=== PATIENT | male | born 2000 | race Caucasian/White ===

== ENCOUNTER 2022-03-05 12:59 | Emergency (ER) | payer OTHER, SELFPAY ==
--- NOTE | 2022-03-05 13:03 | ED.DENTAL ---
HPI - Dental/Oral General Chief complaint: Dental/Oral Stated complaint: TOOTHACHE Time Seen by Provider: 03/05/22 13:03 Source: patient and RN notes reviewed History of Present Illness HPI Narrative: Patient is a 21-year-old male who presents the urgent care with complaints of right upper and lower dental pain. Patient states is been going on for a couple months and he did see the dentist a few months ago and had a basic cleaning. Patient states he does not remember what they said regarding his pain . Patient states that he did not had any cavities filled at that time. Patient has been using ibuprofen for the last few weeks since its caused sore throat and ear pain. Patient denies of any fevers, nausea or vomiting. No other acute complaints. No acute distress noted. Patient aware of the plan of care. Some parts of this dictation were generated by voice recognition software and may contain typographical and/or grammatical inaccuracies. Related Data Allergies Allergy/AdvReac Type Severity Reaction Status Date / Time No Known Allergies Allergy Unverified 12/21/12 19:14 Review of Systems Review of Systems: CONSTITUTIONAL: Denies fever, chills, or sweats. EYES: Denies visual changes, redness, or discharge. ENT: Reports of right otalgia, sore throat and right upper and lower dental pain CARDIOVASCULAR: Denies chest pain, palpitations, or edema. RESPIRATORY: Denies cough or dyspnea. GASTROINTESTINAL: Denies abdominal pain, nausea, vomiting, or diarrhea. GENITOURINARY: Denies dysuria or hematuria. SKIN: Denies rash or itching. MUSCULOSKELETAL: Denies back pain, joint pain, or myalgia. NEUROLOGIC: Denies headache, numbness, or weakness. All other systems reviewed are negative, except as documented in HPI. PMFSH Comments At the time of my signature, I reviewed and agree with the nursing past medical, surgical, social, and family history. There is no relevant family history pertinent to the patient complaint. Exam Narrative: GENERAL: This is a well-nourished, well-developed patient, in no apparent distress. HEAD: normocephalic, atraumatic. EYES: PERRL. Sclera clear/white. Vision is grossly intact. EARS: External ears normal, auditory canals clear and without drainage, TMs normal without perforation. Hearing grossly intact. NOSE: External nose normal with no obvious nasal discharge, nares without redness, no rhinorrhea. THROAT: Mucous membranes moist, posterior pharynx clear. Mild postnasal drainage DENTAL: Good oral hygiene. Erythema, mild edematous abscess above the upper right canine NECK: Neck supple, non-tender without lymphadenopathy CARDIOVASCULAR: Regular rate and rhythm without murmurs, gallops, or rubs. RESPIRATORY: Clear to auscultation. Breath sounds equal bilaterally. No wheezes, rales, or rhonchi. SKIN: warm, intact with no suspicious lesions or rash, good texture and turgor. NEURO: awake, alert, and oriented to person, place and time. There were no obvious focal neurologic abnormalities. EXTREMITIES: No clubbing, cyanosis, or edema. Course Course Level of Care: Express Care Visit Vital Signs Vital signs: Vital Signs Temperature 97.9 F 03/05/22 13:06 Pulse Rate 70 03/05/22 13:06 Respiratory Rate 16 03/05/22 13:06 Blood Pressure 139/92 H 03/05/22 13:06 Pulse Oximetry 100 03/05/22 13:06 Temperature 97.9 F 03/05/22 13:06 Pulse Rate 70 03/05/22 13:06 Respiratory Rate 16 03/05/22 13:06 Blood Pressure 139/92 H 03/05/22 13:06 Pulse Oximetry 100 03/05/22 13:06 Reviewed-patient is informed that they may have pre-hypertension or hypertension based on a blood pressure reading in the department. I recommend the patient call the primary care provider listed on their discharge instructions or a physician of their choice this week to arrange follow-up for further evaluation of possible pre-hypertension or hypertension. MDM - Dental/Oral MDM Narrative Medical decision making narrative: Adv
[2022-03-05 13:06] VITALS: BP 139/92; PULSE 70; RESP 16; TEMP 36.6; O2SAT 100
== END 2022-03-05 13:17 | disposition home or self-care (01) ==
PROVIDERS: Emergency Provider Nurse Practitioner Family
DX: K04.7 Periapical abscess without sinus (principal)
CPT/HCPCS: 99203; G0463

== ENCOUNTER 2023-05-14 18:31 | Emergency (ER) | payer OTHER, SELFPAY ==
--- NOTE | ~2023-05-14 | XR_ITS ---
[id number] 05/14/2023 18:52 Indication: Right knee pain Procedure: 2 views right knee Comparison: No prior studies for comparison. Findings: There is an intramedullary noy in the right tibia, partially visualized. No fracture, sublu xation or dislocation. No significant joint effusion. There is anatomic alignment Impression: 1: No acute fracture. Reviewed, dictated and finalized at location A. Impression: 1: No acute fracture.
--- NOTE | 2023-05-14 18:34 | ED.LOWEXIN ---
HPI - Extremity Injury (Lower) General Chief Complaint: Extremity Injury, Lower Stated Complaint: injured right knee Time Seen by Provider: 05/14/23 18:33 Source: patient Mode of arrival: ambulatory Limitations: no limitations History of Present Illness HPI Narrative: Jose is a 22-year-old male patient presenting to clinic today with complaints of right knee pain / injury. 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 He reports that it felt as though it hit the bone. Is having pain to this area. Is requesting a tetanus shot in the clinic today Related Data Allergies Allergy/AdvReac Type Severity Reaction Status Date / Time No Known Allergies Allergy Verified 05/14/23 18:45 Review of Systems Review of Systems: Pertinent positives per HPI. Patient denies any fever, chills, rash, headache, visual changes, dizziness, cough, runny nose, sore throat, shortness of breath, chest pain, palpitations, nausea, vomiting, diarrhea, constipation, abdominal pain, or any urinary issues. PMFSH Comments At the time of my signature, I reviewed and agree with the nursing past medical, surgical, social, and family history. There is no relevant family history pertinent to the patient complaint. Exam Narrative: General: Well-developed, well nourished, in no apparent distress Head: Normocephalic, atraumatic. Cardio: Regular rate and rhythm, s1 and s2 normal, no murmur appreciated. Resp: Clear to auscultation bilaterally, no rhonchi, rales, wheezing or rubs. Musculoskeletal: No deformity, tender to palpation to the anterior knee superior of the kneecap, pain is worse with ambulation, small puncture wound to the superior anterior knee, no redness or swelling, no sign of foreign body, grossly normal range of motion, muscle strength strong and equal, peripheral pulse strong, no edema, no cyanosis, normal gait and station Course Course Emergency Course: Portions of this record may have been created with voice recognition software. Level of Care: Express Care Visit Vital Signs Vital signs: Vital signs reviewed MDM - Extremity Injury (Lower) MDM Narrative Medical decision making narrative: At the time of visit patient is resting comfortably on exam table. X-ray of the right knee was performed and shows no sign of fracture or malalignment of the right knee. No sign of foreign body. Tetanus shot given in the clinic today Differential Diagnosis Differential diagnosis: Likely acute internal derangement of knee and other (knee strain, tibia fracture, fibula fracture, femur fracture) Imaging Data Radiologist's impression: Close Knee X-Ray (Signed) Tyler Pires - 05/14/23 Launch?[facility] [place] [address] [facility] [place] [address] XRay Report Signed Patient: Jose Williamson : 2000 MR#: [id number] Age/Sex: 22 / M Acct:[id number] Loc: [facility]? ? ADM Date: 05/14/23Attending Dr: Ordering Physician: Charly Rosario APRN Date of Service: 05/14/23 Procedure(s): XR knee 1-2V RT Accession Number(s): [id number] cc: Charly Rosario APRN; UNKNOWN,DOCTOR~ [id number] 05/14/2023 18:52 Indication: Right knee pain Procedure: 2 views right knee Comparison: No prior studies for comparison. Findings: There is an intramedullary noy in the right tibia, partially visualized. No fracture, subluxation or dislocation. No significant joint effusion. There is anatomic alignment Impression: 1: No acute fracture. Reviewed, dictated and finalized at location A. Dictated By:? Tyler Pires MD? 05/14/231855 Signed By:? ? <Electronically signed by? Tyler Pires MD in [place]> 05/14/231856 Discharge Plan Discharge Clinical Impression: Puncture wound,
[2023-05-14 18:42] VITALS: BP 137/92; PULSE 79; RESP 16; TEMP 36.6; O2SAT 100
[2023-05-14] MEDS: TETANUS,DIPHTHERIA,AC PERTUSSIS ADULT (0.5 ML) BOOSTRIX IM (18:54)
--- NOTE | 2023-05-14 19:05 | PC.NURSE ---
+PMS POST MATEO APPLICATION
== END 2023-05-14 19:05 | disposition home or self-care (01) ==
PROVIDERS: Emergency Provider Nurse Practitioner Family
DX: S81.031A Puncture wound without foreign body, right knee, initial encounter (principal); W45.0XXA Nail entering through skin, initial encounter; M25.561 Pain in right knee; Z23 Encounter for immunization
CPT/HCPCS: 73560; 90471; 90715; 99213; G0463

== ENCOUNTER 2024-01-27 21:29 | Emergency (ER) | payer OTHER, SELFPAY ==
--- NOTE | ~2024-01-27 | XR_ITS ---
XR knee LT min 4V 01/27/2024 21:50 INDICATION: Left knee pain after lying floor PROCEDURE: 4 views left knee COMPARISON: No prior studies for comparison. FINDINGS: Fracture, dislocation or subluxation is not identified. There is moderate prepatellar soft tissue swelling. No foreign bodies are identified. IMPRESSION: 1: Moderate prepatellar soft tissue swelling. Reviewed, dictated and finalized at location A.
[2024-01-27 21:36] VITALS: BP 121/73; PULSE 92; RESP 20; TEMP 36.6; O2SAT 100
--- NOTE | 2024-01-27 22:27 | ED.LOWEXIN ---
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 He began having pain and swelling in his left knee afterwards. Took ibuprofen with some relief. Denies numbness. Is able to ambulate, but has discomfort with this. Related Data Allergies Allergy/AdvReac Type Severity Reaction Status Date / Time No Known Allergies Allergy Verified 01/27/24 21:51 Review of Systems Review of Systems: CONSTITUTIONAL: Denies fever, chills, or sweats. MUSCULOSKELETAL: See HPI. NEUROLOGIC: Denies headache, dizziness, numbness, or weakness. All systems reviewed & are unremarkable except as noted in HPI and below Exam Narrative: GENERAL: Well appearing, well-nourished, non-toxic, in no acute distress. HEAD: Normocephalic, atraumatic. RESPIRATORY: Airway patent, respirations nonlabored. CARDIOVASCULAR: Regular rate and rhythm. Pedal pulses intact in easily palpable. MUSCULOSKELETAL: Moves all extremities. No gross deformities. Mild discomfort with flexion of left knee. Mild swelling noted to left anterior knee. No warmth or erythema. No wounds. Mild tenderness along lateral joint space. SKIN: Warm, dry, normal color. NEURO: A&O X3. Speech clear. Cranial nerves II-XII grossly intact. Steady gait. No ataxic movements. PSYCHIATRIC: Appropriate mood and affect. Normal interaction. Course Vital Signs Vital signs: Vital Signs Temperature 97.8 F 01/27/24 21:36 Pulse Rate 92 01/27/24 21:36 Respiratory Rate 20 01/27/24 21:36 Blood Pressure 121/73 01/27/24 21:36 Pulse Oximetry 100 01/27/24 21:36 Oxygen Delivery Room Air 01/27/24 21:36 Temperature 97.8 F 01/27/24 21:36 Pulse Rate 92 01/27/24 21:36 Respiratory Rate 20 01/27/24 21:36 Blood Pressure 121/73 01/27/24 21:36 Pulse Oximetry 100 01/27/24 21:36 Oxygen Delivery Room Air 01/27/24 21:36 MDM - Extremity Injury (Lower) MDM Narrative Medical decision making narrative: Patient presented to ED with left knee pain and swelling. Occurred after prolonged kneeling while working today. Patient?s injury is consistent with musculoskeletal etiology. No signs of neurologic or vascular compromise on physical examination. Compartments are soft without signs of compartment syndrome. XR showing prepatellar soft tissue swelling. Pain is consistent with exam and injury. Patient is felt to be stable for discharge home and further outpatient management and treatment. Discussed rice therapy, Brijesh bandage, continuing icing/elevation, Tylenol and ibuprofen as needed for discomfort. Will provide orthopedic information for follow-up if needed. Patient given return precautions. Discharged in stable condition. Medical Records Attestation: I reviewed the patient's medical records. Imaging Data Attestation: I personally reviewed and interpreted this imaging study as follows: Radiologist's impression: ITS Impressions Knee X-Ray 01/27/24 21:59 IMPRESSION: 1: Moderate prepatellar soft tissue swelling. Discharge Plan Discharge Clinical Impression: Prepatellar effusion of left knee Left knee pain Qualifiers: Chronicity: acute Qualified Code(s): M25.562 - Pain in left knee Patient Disposition: Home, Self-Care Condition: Stable Instructions: Antibiotic Form, Knee Bursitis (ED), Knee Pain (ED), P.R.I.C.E. Treatment (ED) Additional Instructions: Recommend frequent icing to knee, Brijesh bandage for compression and support. Keep leg elevated. Continue Tylenol and ibuprofen as needed for discomfort. Avoid further kneel
== END 2024-01-27 22:36 | disposition home or self-care (01) ==
PROVIDERS: Emergency Provider Physician Assistant
DX: M25.562 Pain in left knee (principal); M25.462 Effusion, left knee
CPT/HCPCS: 73564; 99283

== ENCOUNTER 2024-07-07 13:21 | Emergency (ER) | payer OTHER, SELFPAY ==
[2024-07-07 13:32] VITALS: BP 133/87; PULSE 70; RESP 16; TEMP 36.6; O2SAT 99
--- NOTE | 2024-07-07 13:59 | ED.BACK ---
HPI - Back Pain/Injury General Chief Complaint: Back Pain/Injury Stated Complaint: LOW BACK PAIN Time Seen by Provider: 07/07/24 13:48 Source: patient, RN notes reviewed and old records reviewed Mode of arrival: ambulatory Limitations: no limitations History of Present Illness HPI Narrative: 23-year-old male who presents to [facility] with complaints lower pain worse after prolonged sitting with tightness especially to his right back with no tingling or numbness or any shooting pain to extremities. Patient reports that he was lifting heavy stuff at work and he changed a tire on a truck the day before his symptoms started. Patient reports that he has no difficulty passing his urine or having bowel movement, denies any saddle paraesthesia. Patient reports that at times he has a weird sensation to the top of his right thigh and to testes but denies any pain only intermittent when sitting. Patient reports that he has no burning or pain with urination or any CVA tenderness. Patient taking Tylenol for his discomfort. MD elicited complaint: back pain Onset (ago): day(s) (5 days) Pain scale (0-10): 4 Quality: aching Location: lumbar spine Treatments prior to arrival: acetaminophen Related Data Allergies Allergy/AdvReac Type Severity Reaction Status Date / Time No Known Allergies Allergy Verified 01/27/24 21:51 Review of Systems Review of Systems: CONSTITUTIONAL: Denies fever, chills, or sweats. EYES: Denies visual changes, redness, or discharge. ENT: Denies rhinorrhea, congestion, sore throat, or otalgia. CARDIOVASCULAR: Denies chest pain, palpitations, or edema. RESPIRATORY: Denies cough or dyspnea. GASTROINTESTINAL: Denies abdominal pain, nausea, vomiting, or diarrhea. GENITOURINARY: Denies dysuria or hematuria. SKIN: Denies rash or itching. MUSCULOSKELETAL: Report lower back pain increased on right side, no joint pain, positive for myalgia. NEUROLOGIC: Denies headache, numbness, or weakness. PSYCHIATRIC: Denies anxiety or depression. All systems reviewed & are unremarkable except as noted in HPI and below PMFSH Past Medical History Medical History (Updated 07/07/24 @ 17:03 by Matilde Frederick NP) Tibia and fibula open fracture, right plate and noy repair Surgical History Surgical History (Updated 07/07/24 @ 17:03 by Matilde Frederick NP) History of tonsillectomy and adenoidectomy Social History Social History (Updated 07/07/24 @ 17:01 by Matilde Frederick NP) Smoking status: Current every day smoker Tobacco type: e-cigarettes/vaping Alcohol intake: current Alcohol use details: social Substance use: current Substance use type: marijuana Gender identity (if verbalized by the patient): Male Comments At time of signature, agree with nursing past medical, surgical, social and family history. There is no relevant family history pertinent to the presenting complaint Exam Narrative: GENERAL: Well-appearing, well-nourished, and in no acute distress. HEAD: Normocephalic, atraumatic. EYES: PERRLA and EOMI. ENT: Nares clear, no rhinorrhea or epistaxis. Mucous membranes moist. NECK: Supple.no lymphadenopathy CHEST: Clear to auscultation. No respiratory distress.SAO2 99% on room air HEART: Regular rate and rhythm. No murmur heard. Normal peripheral pulses. ABDOMEN: Soft, nontender, nondistended, normal active bowel sounds. EXTREMITIES: Normal range of motion. No edema. Pain to lower back with most discomfort to right lower back with no radiation into hip or leg. Patient reports strange sensation to top of right thigh and to his testicles intermittently when he sits, denies any pain to leg or testes.Patient denies any tingling or numbness to legs or feet, states tightness feeling to lower back SKIN: Warm, dry, no rash. NEURO: No focal deficits. Alert and oriented x3. Course Course Emergency Course: Patient is aware of diagnosis, understands and agrees to treatment plan.? Anticipatory guidance given
== END 2024-07-07 14:10 | disposition home or self-care (01) ==
PROVIDERS: Emergency Provider Registered Nurse
DX: S39.012A Strain of muscle, fascia and tendon of lower back, initial encounter (principal); X58.XXXA Exposure to other specified factors, initial encounter; F17.290 Nicotine dependence, other tobacco product, uncomplicated; F12.90 Cannabis use, unspecified, uncomplicated
CPT/HCPCS: 99213; G0463

== ENCOUNTER 2024-07-23 19:32 | Emergency (ER) | payer OTHER, SELFPAY ==
--- NOTE | ~2024-07-23 | XR_ITS ---
EXAMINATION: XR ankle LT min 3V DATE: 07/23/2024 19:58 INDICATION: Left ankle pain. TECHNIQUE: 3 views of left ankle were obtained. COMPARISON: Left ankle radiographs 10/06/2015 FINDINGS: Alignment is normal. There is a small fragment of ossification distal to lateral malleolus. Joint spaces are normal. There is ankle soft tissue swelling. IMPRESSION: 1. Small fragment of ossification distal to lateral malleolus, which may be an acute avulsion fractur e or a chronic finding. Reviewed, dictated and finalized at location A. IMPRESSION: 1. Small fragment of ossification distal to lateral malleolus, which may be an acute avulsion fracture or a chronic finding.
--- NOTE | 2024-07-23 19:44 | ED.LOWEXIN ---
HPI - Extremity Injury (Lower) General Chief Complaint: Extremity Injury, Lower Stated Complaint: lt ankle injury Time Seen by Provider: 07/23/24 19:57 Source: patient, RN notes reviewed and old records reviewed Mode of arrival: ambulatory Limitations: no limitations History of Present Illness HPI Narrative: Patient presents with complaints of left lateral ankle pain and swelling. He reports that he injured the ankle yesterday, then re-injured the ankle the same way again today. He reports that he frequently injuries the left ankle. He arrives with an Brijesh wrap in place, states he has been elevating and icing the affected extremity with good results. He denies other injury and trauma. He is observed ambulating with minimal difficulty. He has no other concerns or complaints today Related Data Home Medications Medication Instructions Recorded Confirmed No Home Medications 07/23/24 07/23/24 Allergies Allergy/AdvReac Type Severity Reaction Status Date / Time No Known Allergies Allergy Verified 07/23/24 19:44 Review of Systems Review of Systems: All systems reviewed & are unremarkable except as noted in HPI and below Constitutional: Constitutional: Reports no additional constitutional complaints ENT: Reports system reviewed and no additional complaints, except as documented Cardiovascular: Cardiovascular: Reports no additional cardiovascular complaints Respiratory: Respiratory: Reports no additional respiratory complaints Gastrointestinal: Gastrointestinal: Reports no additional gastrointestinal complaints Musculoskeletal: Musculoskeletal: Reports no additional musculoskeletal complaints, Reports as per HPI and Reports arthralgias [facility] Past Medical History Medical History (Updated 07/24/24 @ 00:01 by Taco Shields) Tibia and fibula open fracture, right plate and noy repair Surgical History Surgical History (Updated 07/07/24 @ 17:03 by Matilde Frederick NP) History of tonsillectomy and adenoidectomy Social History Social History (Updated 07/07/24 @ 17:01 by Matilde Frederick NP) Smoking status: Current every day smoker Tobacco type: e-cigarettes/vaping Alcohol intake: current Alcohol use details: social Substance use: current Substance use type: marijuana Gender identity (if verbalized by the patient): Male Comments At the time of my signature, I reviewed and agree with the nursing past medical, surgical, social, and family history. There is no relevant family history pertinent to the patient complaint. Exam Const: General: cooperative, no acute distress, alert and awake Orientation/consciousness: oriented to person, oriented to place and oriented to time HENMT: Head: normal to inspection Resp: Effort & Inspection: normal respiratory effort and able to speak in complete sentences Auscultation: clear to auscultation bilaterally, no crackles, no rales, no rhonchi and no wheezes Cardio: Palpation: normal PMI Rate: regular rate Rhythm: regular rhythm Heart sounds: S1 normal heart sound present and S2 normal heart sound present Neuro: General: oriented to person, oriented to place and oriented to time Cranial nerves: Yes CN's II-XII intact bilaterally Extrem: Left lower extremity: ankle Details: tenderness Location: of the lateral malleolus, swelling ( very mild swelling to left lateral ankle) Details: laterally and normal ROM and foot Details: normal capillary refill and motor-sensory exam Psych: Appearance: grossly normal Thought process: Normal thought process present Insight: Good insight present (Psych) Judgement: Good judgement present (Psych) Course Course Level of Care: Express Care Visit Vital Signs Vital signs: Vital Signs Temperature 98.3 F 07/23/24 19:46 Pulse Rate 114 H 07/23/24 19:46 Respiratory Rate 16 07/23/24 19:46 Blood Pressure 143/87 H 07/23/24 19:46 Pulse Oximetry 100 07/23/24 19:46 Temperature 98.3 F 07/23/24 19:4
[2024-07-23 19:46] VITALS: BP 143/87; PULSE 114; RESP 16; TEMP 36.8; O2SAT 100
[2024-07-23 20:21] VITALS: PULSE 87
== END 2024-07-23 20:23 | disposition home or self-care (01) ==
PROVIDERS: Emergency Provider Nurse Practitioner Family
DX: S93.402A Sprain of unspecified ligament of left ankle, initial encounter (principal); S96.912A Strain of unspecified muscle and tendon at ankle and foot level, left foot, initial encounter; X58.XXXA Exposure to other specified factors, initial encounter; F17.290 Nicotine dependence, other tobacco product, uncomplicated
CPT/HCPCS: 73610; 99213; G0463

== ENCOUNTER 2024-09-21 14:33 | Outpatient (RCR) | payer OTHER, SELFPAY ==
--- NOTE | 2024-09-21 16:08 | OPREHPOC ---
Outpatient Therapy Plan of Care This is a Multidisciplinary Plan of Care that may contain components documented by all disciplines (PT, OT, and ST.) PT Problem 1 PT Problem #1 Knowledge Deficit PT Goal 1 Goal / Goal Update Pt to be IND with issued HEP. PT Problem 2 PT Problem #2 Pain PT Goal 1 Goal / Goal Update 1. Pt to report ankle pain no greater than 3/10 in the last week. 2. Pt to report 75% return to PLOF. PT Problem 3 PT Problem #3 Impaired Strength PT Goal 1 Goal / Goal Update 1. Pt to demonstrate equal ankle strength susy. Target Visit 6
--- NOTE | 2024-09-21 16:09 | PTOPEVAL1 ---
Assessment and note entered by Nalini Acevedo, PT, DPT Evaluation Information Assessment Status Evaluation Diagnosis L ankle pain ICD-10 Condition Codes (PT) M54.6 Subjective Information Pt reports a new history of L ankle sprains, increasing within the last year, with at least 5 ankle sprains. He states when he sprains them he will get a lots of swelling and bruising. He will occasionally get pain when stepping down a step. Pt reports a hx of a R tib/fib fx ~10 years ago. 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 He has started wearing high top work boots to avoid further ankle sprains. Reported Pain Level Pain Score 0: Self Report Assessment PT Clinical Summary Pt presents to therapy today for his initial evaluation with a diagnosis of L ankle instability . today he demonstrates decreased L ankle strength and single leg stability when compared to his R ankle. He demonstrates mild lateral hip weakness as well. With ambulation and functional squatting there is a mild increase in pes planus susy. Skilled therapy services are indicated to decreased ankle pain, improve ankle stability, and return to prior level of function. Plan of Care Interventions Electrical Stimulation,Gait Training,Hot Pack/Cold Pack,Manual Therapy,Neuro Re-education,Patient/ Caregiver Educati,Therapeutic Activities, Therapeutic Exercise PT Services Indicated Yes Treatment Frequency and 1x/wk for 6 visits Duration These treatments will address the objective and functional deficits as defined above. The patient will be advanced safely and appropriately in order for the patient to progress towards his/her prior level of function. Additional exercises will be introduced and as well as a comprehensive home exercise program upon discharge, if needed, ?to ensure carryover of functional gains achieved in the clinic. This treatment plan has been reviewed and agreement upon by the patient.
--- NOTE | 2024-10-06 11:39 | PCPTNOTE ---
Patient called to cancel therapy with no reason given.
--- NOTE | 2024-10-15 16:03 | PCPTNOTE ---
Patient no called/no showed appointment today.
--- NOTE | 2024-10-18 09:55 | PCPTNOTE ---
Patient called & cancelled scheduled appointment this date due to being too busy. States he will not have insurance after 10/20/24 so is not sure when he will return.
--- NOTE | 2024-11-15 08:57 | PTOPDC ---
Assessment and note entered by Nalini Acevedo, PT, DPT Evaluation Information Assessment Status Discharge - Pt Not Present Diagnosis L ankle pain ICD-10 Condition Codes (PT) Pain in Thoracic Spine M54.6 Subjective Information Called pt and attempted to leave voicemail. Pt was evaluated on 09/21/24 and did not complete any of his 4 follow up visits. Assessment PT Clinical Summary Pt will be discharged at this time per the cancellation policy. Does not have any further appointments scheduled. Attempted to call to notify pt of discharge.
== END 2024-11-15 10:39 | disposition home or self-care (01) ==
LOC: ANHGOSHPT 14:33
DX: M25.372 Other instability, left ankle (principal)
CPT/HCPCS: 97110; 97161

== ENCOUNTER 2024-11-03 15:08 | Emergency (ER) | payer SELFPAY ==
--- NOTE | ~2024-11-03 | CT_ITS ---
EXAMINATION: CT lumbar spine wo con DATE: 11/03/2024 15:44 INDICATION: Lumbar pain and sciatica. TECHNIQUE: Computed tomography (CT) of the lumbar spine was performed without intravenous contrast. A utomated exposure control and iterative reconstruction technique were employed. The dose-length produ ct was 319.32 mGy-cm. COMPARISON: None FINDINGS: Alignment is normal. Mild likely physiologic anterior wedging at T12. Lumbar vertebral body heights a re normal. There are a few Schmorl's nodes along the endplates in the superior lumbar and lower thora cic spine. No fracture. Mild disc height loss at L4-L5 with endplate osteophytes at the margin of a l ikely right foraminal zone disc extrusion. Mild disc height loss at T11-T12 and T12-L1. Paravertebral soft tissues are unremarkable. Visualized portions of bowels including the appendix are normal. Bila teral sacroiliac joints are unremarkable. The following disc levels are specifically discussed: T12-L1: Small right paracentral disc protrusion. There is mild right facet joint osteoarthritis. Ther e is no neural foraminal stenosis. There is mild central canal stenosis. L1-L2: There is mild bilateral facet joint osteoarthritis. There is no neural foraminal stenosis. The re is no central canal stenosis. L2-L3: There is mild bilateral facet joint osteoarthritis. There is no neural foraminal stenosis. The re is no central canal stenosis. L3-L4: Disc is mildly bulging. There is mild to moderate bilateral facet joint osteoarthritis. There is no neural foraminal stenosis. There is minimal central canal stenosis. L4-L5: Disc is mildly bulging. There is moderate bilateral facet joint osteoarthritis. There is no ne ural foraminal stenosis. There is minimal central canal stenosis. L5-S1: Disc is mildly bulging with small endplate osteophytes at the margins of a superimposed likely disc extrusion at the right foraminal zone. There is mild left and mild to moderate right facet join t osteoarthritis. There is moderate right neural foraminal stenosis. There is mild central canal sten osis with narrowing of the right lateral recess. IMPRESSION: 1. Mild thoracolumbar spondylosis most notable for a right L5-S1 likely chronic disc extrusion result ing in mild central canal stenosis and moderate right neural foraminal stenosis. Reviewed, dictated and finalized at location B. SUPERVISOR IMPRESSION: 1. Mild thoracolumbar spondylosis most notable for a right L5-S1 likely chronic disc extrusion resulting in mild central canal stenosis and moderate right filipe ral foraminal stenosis.
[2024-11-03 15:09] VITALS: BP 142/86; PULSE 83; RESP 16; TEMP 36.4; O2SAT 97
--- NOTE | 2024-11-03 15:12 | ED.BACK ---
HPI - Back Pain/Injury General Chief Complaint: Back Pain/Injury <LILLIAM Vargas Last Filed: 11/03/24 15:15> Stated Complaint: sciatica pain <LILLIAM Vargas Filed: 11/03/24 15:15> Time Seen by Provider: 11/03/24 15:54 <LILLIAM Vargas Filed: 11/03/24 15:15> Focused HPI: 24-year-old male presents to the emergency department for back pain that radiates to his right leg for several weeks. Patient states prior to the onset of symptoms he had a mechanical fall that caused him to land on his right side. No head injury or LOC. Since then he has been having pain that originates in the right low back, down to the right buttock, down the posterior aspect of his leg and wraps around to the top of the foot. States the pain is increased which prompted him to come to the ED today. Denies dysuria, hematuria, saddle anesthesia, bowel or bladder incontinence, urinary tension, fever, surgery or procedures to his back, IV drug use, cancer. Patient is also presenting with a small laceration to the palm of the left hand. States he fell prior to arrival, slipped on the ice and fell, caught himself with his left hand. Tdap is up-to-date. Denies pain to his hand. Denies hitting his head or LOC. GENERAL: Well-appearing, well-nourished, and in no acute distress. HEAD: Normocephalic, atraumatic. CHEST: Clear to auscultation. ?No respiratory distress. BACK: Tenderness to the lumbar spine on palpation, tenderness over the right piriformis, positive seated straight leg raise bilaterally. No saddle anesthesia, strength 5/5 in BLE SKIN: Very small superficial laceration to the palm of the left hand, bleeding controlled, surrounding dried blood hand, did structures or foreign bodies visualized, full active and passive range of motion of all digits, cap refill less than 2, sensation intact HEART: Regular rate and rhythm.? NEURO: ?Alert and oriented x3. Patient screened in triage and initial orders placed.? ?Additional care and disposition to be based upon?diagnostic testing and treatment. <LILLIAM Vargas Filed: 11/03/24 15:15> History of Present Illness HPI Narrative: Agree with HPI. Pain left buttock in the leg. Initially started when he was driving and had trouble flexing at the knee and hip. Radiates down into foot now. <Edison Huffman MD - Last Filed: 11/03/24 16:30> Related Data Home Medications: Home Medications ?Medication ?Instructions ?Recorded ?Confirmed ?Last Taken ?Type No Home Medications 07/23/24 07/23/24 Unknown History <Alexandria Angeles PA-C - Last Filed: 11/03/24 15:15> Allergies/Adverse Reactions: Allergies Allergy/AdvReac Type Severity Reaction Status Date / Time No Known Allergies Allergy Verified 07/23/24 19:44 <Alexandria Angeles PA-C - Last Filed: 11/03/24 15:15> Review of Systems Constitutional: Constitutional: Reports no additional constitutional complaints <Edison Huffman MD - Last Filed: 11/03/24 16:30> Cardiovascular: Cardiovascular: Reports no additional cardiovascular complaints <Edison Huffman MD - Last Filed: 11/03/24 16:30> Respiratory: Respiratory: Reports no additional respiratory complaints <Edison Huffman MD - Last Filed: 11/03/24 16:30> Gastrointestinal: Gastrointestinal: Reports no additional gastrointestinal complaints <Edison Huffman MD - Last Filed: 11/03/24 16:30> Musculoskeletal: Musculoskeletal: Reports no additional musculoskeletal complaints <Edison Huffman MD - Last Filed: 11/03/24 16:30> [facility] Past Medical History Medical History: Medical History (Updated 11/03/24 @ 16:24 by Edison Huffman MD) Tibia and fibula open fracture, right plate and noy repair <Alexandria Angeles PA-C - Last Filed: 11/03/24 15:15> Surgical History Surgical History: Surgical History (Updated 07/07/24 @ 17:03 by Matilde Frederick NP) History of tonsillectomy and adenoidectomy <LILLIAM Vargas Last Filed: 11/03/24 15:15> Social History Social History: Social History (Updated 07/07/24 @ 17:01 by Matilde Frederick NP) Smoking status: Current every day smoker Tobacco type: e-cigarettes/vaping Alcohol intake: current Alcohol use details: social Substance use: current Substance use type: marijuana Gender identity (if verbalized by the patient): Male <Alexandria Angelse PA-C - Last Filed: 11/03/24 15:15> Exam Narrative: GENERAL: Well-appearing, well-nourished, and in no acute distress. HEAD: Normocephalic, atraumatic. ENT: Mucous membranes moist. Back: No midline tenderness the T/L-spine. Tender in the right gluteal region. Mild right paraspinal muscle tenderness will lumbar spine. EXTREMITIES: Normal range of motion. No edema. SKIN: Warm, dry, no rash. NEURO: Alert and oriented x3. PSYCH: Normal mood and affect. <Edison Huffman MD - Last Filed: 11/03/24 16:30> Course Course Emergency Course: Discussed disc bulging on CT scan but feel his symptoms are likely more from his piriformis muscle given his description of the discomfort. Recommend strengthening and stretching exercises as well as anti-inflammatories. Needs to establish with PCP. Discussed proper lifting techniques. <Edison Huffman MD - Last Filed: 11/03/24 16:30> Vital Signs Vital signs: Vital Signs Temperature 97.6 F 11/03/24 15:09 Pulse Rate 83 11/03/24 15:09 Respiratory Rate 16 11/03/24 15:09 Blood Pressure 142/86 H 11/03/24 15:09 Pulse Oximetry 97 11/03/24 15:09 Oxygen Delivery Room Air 11/03/24 15:09 Temperature 97.6 F 11/03/24 15:09 Pulse Rate 83 11/03/24 15:09 Respiratory Rate 16 11/03/24 15:09 Blood Pressure 142/86 H 11/03/24 15:09 Pulse Oximetry 97 11/03/24 15:09 Oxygen Delivery Room Air 11/03/24 15:09 <Alexandria Angeles PA-C - Last Filed: 11/03/24 15:15> Vital Signs Temperature 97.6 F 11/03/24 15:09 Pulse Rate 83 11/03/24 15:09 Respiratory Rate 16 11/03/24 15:09 Blood Pressure 142/86 H 11/03/24 15:09 Pulse Oximetry 97 11/03/24 15:09 Oxygen Delivery Room Air 11/03/24 15:09 Temperature 97.6 F 11/03/24 15:09 Pulse Rate 83 11/03/24 15:09 Respiratory Rate 16 11/03/24 15:09 Blood Pressure 142/86 H 11/03/24 15:09 Pulse Oximetry 97 11/03/24 15:09 Oxygen Delivery Room Air 11/03/24 15:09 <Edison Huffman MD - Last Filed: 11/03/24 16:30> MDM - Back Pain/Injury Imaging Data Radiologist's impression: ITS Impressions Lumbar Spine CT 11/03/24 15:45 IMPRESSION: 1. Mild thoracolumbar spondylosis most notable for a right L5-S1 likely chronic disc extrusion resulting in mild central canal stenosis and moderate right neural foraminal stenosis. <Edison Huffman MD - Last Filed: 11/03/24 16:30> Discharge Plan Discharge Clinical Impression: Piriformis syndrome of right side <Alexandria Angeles PA-C - Last Filed: 11/03/24 15:15> Patient Disposition: Home, Self-Care <Alexandria Angeles PA-C - Last Filed: 11/03/24 15:15> Condition: Stable <Alexandria Angeles PA-C - Last Filed: 11/03/24 15:15> Instructions: Acute Low Back Pain (ED) <LILLIAM Vargas Last Filed: 11/03/24 15:15> Additional Instructions: You will need to perform some stretching and strengthening exercises of the piriformis muscle. You can do gluteal bridges, straight leg raises, bird dog exercises, and lunges. <LILLIAM Vargas Last Filed: 11/03/24 15:15> Patient Language: Mongolian <LILLIAM Vargas Last Filed: 11/03/24 15:15> Prescriptions: New naproxen 375 mg tablet 375 mg PO BID Qty: 14 0RF No Action No Home Medications <LILLIAM Vargas Last Filed: 11/03/24 15:15> Follow-up/Referrals: PHYSICIAN,DOWN FILLER [Primary Care Provider] - Kamran Anand MD [Physician] - 1 Week Violetta Duffy MD [Physician] - 2 Weeks <Alexandria Angeles PA-C - Last Filed: 11/03/24 15:15>
[2024-11-03] MEDS: CYCLOBENZAPRINE HCL 10 MG TABLET PO (15:28)
[2024-11-03] MEDS: LIDOCAINE 5% PATCH 1 PATCH TRANSDERM (15:29)
[2024-11-03] MEDS: KETOROLAC 30 MG/ML VIAL (*BKC) IM (15:29)
[2024-11-03 17:06] VITALS: BP 118/68; PULSE 68; RESP 16; TEMP 36.4; O2SAT 100
== END 2024-11-03 17:09 | disposition home or self-care (01) ==
PROVIDERS: Emergency Provider Emergency Medicine
DX: G57.01 Lesion of sciatic nerve, right lower limb (principal); F17.290 Nicotine dependence, other tobacco product, uncomplicated; M47.817 Spondylosis without myelopathy or radiculopathy, lumbosacral region
CPT/HCPCS: 72131; 96372; 99284; A9270; J1885

== ENCOUNTER 2025-04-16 11:53 | Emergency (ER) | payer OTHER, SELFPAY ==
[2025-04-16 12:06] VITALS: BP 118/80; PULSE 61; RESP 16; TEMP 36.6; O2SAT 99
--- NOTE | 2025-04-16 16:10 | ED_ITS ---
HPI - Skin/Abscess/Foreign Bdy General Chief complaint: Skin/Abscess/Foreign Body Stated complaint: RASH Time Seen by Provider: 04/16/25 12:25 Source: patient and RN notes reviewed Mode of arrival: ambulatory Limitations: no limitations History of Present Illness HPI narrative: 24-year-old male presents Express Care complaining of possible poison mere. She knows thoracic approximately 3 days ago. Patient was outside doing yd work and Shaila gone to poison mree. Patient reports the rash is very pruritic. Patient denies any upper respiratory symptoms some fevers, cough, body aches, chills, or any other symptoms. Related Data Allergies Allergy/AdvReac Type Severity Reaction Status Date / Time No Known Allergies Allergy Verified 04/16/25 12:05 Review of Systems Review of Systems: CONSTITUTIONAL: Denies fever, chills, or sweats. EYES: Denies visual changes, redness, or discharge. ENT: Denies rhinorrhea, congestion, sore throat, or otalgia. CARDIOVASCULAR: Denies chest pain, palpitations, or edema. RESPIRATORY: Denies cough or dyspnea. GASTROINTESTINAL: Denies abdominal pain, nausea, vomiting, or diarrhea. GENITOURINARY: Denies dysuria or hematuria. SKIN: Positive for rash and itching. MUSCULOSKELETAL: Denies back pain, joint pain, or myalgia. NEUROLOGIC: Denies headache, numbness, or weakness. PSYCHIATRIC: Denies anxiety or depression. All other systems reviewed are negative, except as documented in HPI. [facility] Past Medical History Medical History Tibia and fibula open fracture, right plate and noy repair Surgical History Surgical History History of tonsillectomy and adenoidectomy Social History Social History Smoking status: Current every day smoker Tobacco type: e-cigarettes/vaping Alcohol intake: current Alcohol use details: social Substance use: current Substance use type: marijuana Gender identity (if verbalized by the patient): Male Comments At the time of my signature, I reviewed and agree with the nursing past medical, surgical, social, and family history. There is no relevant family history pertinent to the patient complaint. Exam Narrative: GENERAL: This is a well-nourished, well-developed adult, in no apparent distress. They are non ill-appearing, nontoxic appearing. HEAD: normocephalic, atraumatic. EYES: Sclera clear/white. Conjunctiva normal. Vision is grossly intact. Extraocular movements intact EARS: External ears normal, Hearing grossly intact. NOSE: External nose normal THROAT: Mucous membranes moist, NECK: Neck supple, CARDIOVASCULAR: Regular rate and rhythm RESPIRATORY: Respiratory rate normal, respiratory effort nonlabored, no respiratory distress SKIN: Pruritic Erythematous macular, papular, vesicular rash scattered throughout the patient's arms, trunk, legs. No area of fluctuance, no induration, no surrounding cellulitis, no exudate. NEURO: awake, alert, and oriented to person, place and time. There were no obvious focal neurologic abnormalities. EXTREMITIES: No joint tenderness, effusion, or edema noted. Course Course Emergency Course: Portions of this record may have been created with voice recognition software Level of Care: Express Care Visit Vital Signs Vital signs: Vital Signs Temperature 97.8 F 04/16/25 12:06 Pulse Rate 61 04/16/25 12:06 Respiratory Rate 16 04/16/25 12:06 Blood Pressure 118/80 04/16/25 12:06 Pulse Oximetry 99 04/16/25 12:06 Temperature 97.8 F 04/16/25 12:06 Pulse Rate 61 04/16/25 12:06 Respiratory Rate 16 04/16/25 12:06 Blood Pressure 118/80 04/16/25 12:06 Pulse Oximetry 99 04/16/25 12:06 Reviewed MDM - Skin/Abscess/Foreign Bdy MDM Narrative Medical decision making narrative: Likely contact dermatitis from poison mere. Will Prescribe prednisone taper. Discussed physical exam findings. Advised supportive measures and signs/symptoms to go to the ER. Pt is appropriate for outpt treatment and f/u. Differential Diagnosis Differential diagnosis: Likely viral exanthem, allergic reaction to drug, cellulitis, eczema and contact dermatitis Critical Care Time Critical Care Time Critical Care Time: No Discharge Plan Discharge Clinical Impression: Contact dermatitis Qualifiers: Contact dermatitis type: unspecified Contact dermatitis trigger: unspecified trigger Qualified Code(s): L25.9 - Unspecified contact dermatitis, unspecified cause Patient Disposition: Home Condition: Stable Instructions: Contact Dermatitis (ED), Poison Mere (ED) Additional Instructions: Take the prednisone as directed. Take it in the morning and take it with food. You may use uekz-srr-[id number] Tecnu soap as directed on the bottle to help remove the oils from poison mere off your skin. You may use calamine lotion, camphor, hydrocortisone cream Benadryl cream as needed for itchiness symptoms. You may also take Zyrtec or Claritin as needed for allergy for itchiness symptoms. Follow-up PCP in 3-5 days. If you develop any worsening redness, swelling, discharge, fevers, breathing problems, or any other concerns please go to the ER immediately. Patient Language: [place] Prescriptions: New prednisone 10 mg tablet See Taper PO DIRECTED Qty: 42 0RF Taper: Prednisone Taper from 60 mg;12 days 60 mg DAILY for 2 Days and 0 Hour 50 mg DAILY for 2 Days and 0 Hour 40 mg DAILY for 2 Days and 0 Hour 30 mg DAILY for 2 Days and 0 Hour 20 mg DAILY for 2 Days and 0 Hour 10 mg DAILY for 2 Days and 0 Hour Rx Instructions: see taper instructions Follow-up/Referrals: PHYSICIAN,CHAIR SPRING ASSEMBLER [Primary Care Provider] - Time of Disposition: 12:39
== END 2025-04-16 12:48 | disposition home or self-care (01) ==
DX: L25.9 Unspecified contact dermatitis, unspecified cause (principal); F17.290 Nicotine dependence, other tobacco product, uncomplicated; F12.90 Cannabis use, unspecified, uncomplicated
CPT/HCPCS: 99213; G0463